=== PATIENT | female | born 1985 | race Caucasian/White ===

== ENCOUNTER 2019-09-22 10:26 | Day surgery (SDC) | payer OTHER ==
[2019-09-17 10:12] VITALS: BMI 25.7
[2019-09-18 13:38] LABS: Mean Corpuscular HGB CONC 33.6 g/dL (32.0-36.0); Mean Corpuscular Hemoglobin 30.2 pg (27.0-31.0); Mean Corpuscular Volume 89.8 fL (78.0-98.0); Mean Platelet Volume 8.8 fL (7.4-10.4); Platelet Count 221 thou/uL (130-400); RBC Distribution Width 12.4 % (11.5-14.5); Red Blood Cell (RBC) Count 4.65 mill/uL (4.20-5.40); White Blood Cell (WBC) Count 11.4 thou/uL (4.8-10.8)
[2019-09-19 12:16] LABS: SARS-CoV-2 MS2 Positive; SARS-CoV-2 N Gene Negative; SARS-CoV-2 S Gene Negative; SARS-CoV-2 orf1ab Negative
[2019-09-22] MEDS ORDERED: Fentanyl 100 MCG/2 ML VIAL ONE ×2 (11:34→13:36)
[2019-09-22] MEDS ORDERED: Ondansetron PF 4 MG/2 ML Vial ONE (11:39)
[2019-09-22] MEDS ORDERED: PROPOFOL 200 MG/20 ML VIAL ONE (11:39)
[2019-09-22] MEDS ORDERED: Lidocaine 1% PF 5 ML VIAL ONE (11:39)
[2019-09-22] MEDS ORDERED: Ketorolac Tromethamine 30 MG/ML VIAL ONE (11:39)
[2019-09-22] MEDS ORDERED: EPHEDRINE 25 MG/5 ML SYRINGE ONE (11:39)
[2019-09-22] MEDS ORDERED: Succinylcholine Chloride 20 MG/ML 10 ml SYRINGE FS ONE (11:39)
[2019-09-22] MEDS ORDERED: Acetaminophen 500 MG TAB ONE (11:42)
[2019-09-22] MEDS ORDERED: Promethazine HCl 25 MG/ML VIAL ONE (13:08)
[2019-09-22] MEDS ORDERED: HYDROcodone/Acetaminophen 5/325 mg Tablet ONE (14:07)
--- NOTE | 2019-09-22 19:20 | OP ---
DATE OF PROCEDURE: 09/22/2019 PREOPERATIVE DIAGNOSES: 1. Intrauterine at 13 weeks. 2. History of cervical insufficiency. POSTOPERATIVE DIAGNOSES: 1. Intrauterine at 13 weeks. 2. History of cervical insufficiency. PROCEDURE PERFORMED: [place] cervical cerclage. ANESTHESIA: General LMA. HEADING REPAIRER SURGEON: None. ESTIMATED BLOOD LOSS: 5 mL. PATHOLOGY: None. COMPLICATIONS: None. DRAINS: None. FINDINGS: A patulous cervix was present, closed at the internal cervical os, approximately 2 cm dilated at the external os. Prior scars from previous cerclage was placed. Mersilene tape was used with the knot present at 5 o'clock. The cervix following the procedure was closed long and high, starting with the Mersilene tape. DESCRIPTION OF PROCEDURE: The patient was taken to the operating room, where general anesthesia was obtained without difficulty. The patient was prepped and draped in a sterile fashion in a dorsal lithotomy position. A weighted speculum was placed in the vagina, and the cervix was visualized with a Anya retractors. Anterior and posterior lips of the cervix were grasped with ring forceps, and a Mersilene tape was used to perform circumferential stitch around the cervix starting posteriorly and 4 different throws through the cervical stroma. The knot was then tied down securely x4. The needles were cut and removed out of the patient. Irrigation was performed of the cervix and vagina. Hemostasis was noted to be excellent. All instruments were removed out of the vagina. The patient tolerated the procedure well. Sponge, lap, and needle counts were correct x2. The patient was taken to recovery room in stable condition. Job ID: [id number]
== END 2019-09-22 14:30 | disposition home or self-care (01) ==
LOC: SDC 10:26
PROVIDERS: ATTEND Student in an Organized Health Care Education/Training Program
PROC: 0UVC7ZZ Restriction of Cervix, Via Natural or Artificial Opening (ICD-10-PCS; principal; 2019-09-22)
DX: O34.31 Maternal care for cervical incompetence, first trimester (principal); O09.211 Supervision of pregnancy with history of pre-term labor, first trimester; O09.521 Supervision of elderly multigravida, first trimester; Z3A.13 13 weeks gestation of pregnancy; Z87.440 Personal history of urinary (tract) infections; Z87.891 Personal history of nicotine dependence; Z88.0 Allergy status to penicillin; Z91.048 Other nonmedicinal substance allergy status
CPT/HCPCS: 85027; 86850; 86900; 86901; 87635; J1885; J2001; J2405; J2550; J2704; J3010; U0003

== ENCOUNTER 2020-02-15 16:55 | Day surgery (SDC) | payer OTHER ==
[2020-02-15 17:26] VITALS: BP 114/69; TEMP 98.7
[2020-02-15 17:33] VITALS: BMI 27.4
[2020-02-15 18:40] LABS: Bilirubin Negative (Negative); Blood, Urine Negative (Negative); Clarity Clear (Clear); Glucose, Urine (Dipstick) Normal (Negative); Ketone, Urine Negative (Negative); Leukocyte 250 Leu/uL (Negative); Nitrite Negative (Negative); Protein, Urine (Dipstick) 10 mg/dL (Neg-Trace); RBC/HPF 0-3 HPF (0-3); Specific Gravity, Urine 1.021 (1.002-1.036); Squamous Epithelial 0-3 HPF (0-3); Urobilinogen Normal mg/dL (Less than 2); pH, Urine 6.5 (5.0-9.0)
[2020-02-15 18:49] LABS: Bacteria/HPF 1+ HPF (None Seen)
[2020-02-15] MEDS ORDERED: hydrALAZINE 20 MG/ML VIAL SLOW IVP PRN (19:28)
--- NOTE | 2020-02-15 20:56 | PRG ---
DATE OF SERVICE: 02/15/2020 PRIMARY OB: Dr. Beronica Roberts. CHIEF COMPLAINT: Cramping. HISTORY OF PRESENT ILLNESS: The patient is a 34-year-old G8, P5 female with an intrauterine at 34 weeks and 4 days, presenting to Labor and Delivery with complaints of pelvic pressure and cramping since about 3 o'clock. The patient reports this has been complicated by history of cervical incompetence and had a prophylactic cerclage placed and is on Jessica weekly. The patient also is on Macrobid for UTI suppression every night. The patient reports that she has had a change in her discharge and believes that she has urinary tract infection. She reports that her cramping has been present off and on for several weeks now, just got a little bit worse today. She denies fever, cough, headache, chest pain, shortness of breath, nausea, vomiting, diarrhea, constipation, hip problems, knee problems, muscle weakness. She denies vaginal bleeding, leakage of fluid, urinary urgency or frequency. PAST MEDICAL HISTORY: Cervical incompetence, acid reflux, and asthma. PAST SURGICAL HISTORY: Cervical cerclage, D and C, and blood transfusion. SOCIAL HISTORY: Denies drug, alcohol, or tobacco use. ALLERGIES: PENICILLIN. OB LABS: Unavailable at time of dictation. REVIEW OF SYSTEMS: Per HPI. PHYSICAL EXAMINATION: VITAL SIGNS: Blood pressure 114/69, heart rate of 78, respiratory rate of 18, saturating 97% on room air, temperature 98.7. GENERAL: She appears to be in no acute distress. She is alert, oriented, cooperative, and pleasant to interact with. HEENT: Head is normocephalic and atraumatic. LUNGS: Clear to auscultation bilaterally. HEART: Has a regular rate and rhythm. ABDOMEN: Gravid, soft, nontender. EXTREMITIES: Nontender and nonedematous. GENITOURINARY: Vulva is without masses, lesions, or erythema. Vagina is moist. She does have a white curd-like discharge and a thin milky discharge. Cervix appears closed. There is no bloody discharge. On digital exam, cerclage is intact and cervix is closed. DIAGNOSTIC DATA: heart tracing shows the fetus with a baseline in the 130s with moderate long-term variability, positive 15 x 15 accelerations. Tocometer showing contractions about every 3 to 4 minutes, but not felt consistently. UA shows 250 leukocyte esterase, 4 to 6 white blood cells, and 1+ bacteria, 0 to 3 squamous cells. VP3 shows negative yeast, negative Trichomonas, positive Gardnerella. ASSESSMENT AND PLAN: The patient is a 34-year-old female with an intrauterine at 34 weeks and 4 days, complicated by history of delivery and incompetent cervix, status post cerclage placement and on [place]. She also has a history of recurrent UTIs, is on suppression. Her UA today shows positive bacteria. I have cultured the urine to see if we have any resistance to her suppressive medications. In the meantime, she has been asked to take Macrobid 2 to 3 times a day for treatment and then to follow up. She has a followup appointment with Dr. Roberts on Saturday to see if cultures are showing any resistance to her current treatment. She also has bacterial vaginosis, for which she will be prescribed metronidazole. These 2 things could very well be causing the cramping she is experiencing. However, patient has no evidence of labor at this time. The cerclage is intact and there is no pressure against the cervix. Fetus has a category 1 tracing and reactive NST. The patient is being discharged home on Macrobid, again 100 mg to be taken 2 to 3 times a day for a week and metronidazole 500 mg twice a day to be taken for a week. She is also going to be taking zaly-grl-cxprmic anti-yeast medication vaginally. 02/17/20 urine cx results still pending. Job ID: [id number]
== END 2020-02-15 19:30 | disposition home health service (06) ==
LOC: L&D/OP 16:55
PROVIDERS: ATTEND Student in an Organized Health Care Education/Training Program
DX: O99.891 Other specified diseases and conditions complicating pregnancy (principal); R10.2 Pelvic and perineal pain; O23.43 Unspecified infection of urinary tract in pregnancy, third trimester; O23.593 Infection of other part of genital tract in pregnancy, third trimester; B96.89 Other specified bacterial agents as the cause of diseases classified elsewhere; O34.33 Maternal care for cervical incompetence, third trimester; O99.613 Diseases of the digestive system complicating pregnancy, third trimester; K21.9 Gastro-esophageal reflux disease without esophagitis; O99.513 Diseases of the respiratory system complicating pregnancy, third trimester; J45.909 Unspecified asthma, uncomplicated; O09.213 Supervision of pregnancy with history of pre-term labor, third trimester; O09.523 Supervision of elderly multigravida, third trimester; Z3A.34 34 weeks gestation of pregnancy; Z79.899 Other long term (current) drug therapy; Z88.0 Allergy status to penicillin; Z91.048 Other nonmedicinal substance allergy status
CPT/HCPCS: 81001; 87086; 87480; 87510; 87660; 99285

== ENCOUNTER 2020-03-09 09:51 | Inpatient (IN) | payer OTHER ==
[2020-03-09 10:30] VITALS: BMI 27.3
[2020-03-09] MEDS ORDERED: Acetaminophen 500 MG TAB PO PRN (11:52)
[2020-03-09] MEDS ORDERED: Methylergonovine 0.2 MG/ML VIAL IM PRN (11:52)
[2020-03-09] MEDS ORDERED: hydrALAZINE 20 MG/ML VIAL SLOW IVP PRN (11:52)
[2020-03-09] MEDS ORDERED: Carboprost 250 MCG/ML AMP IM PRN (11:52)
[2020-03-09] MEDS ORDERED: Ibuprofen 800 MG TAB PO PRN (11:52)
[2020-03-09] MEDS ORDERED: HYDROcodone/Acetaminophen 5/325 mg Tablet PO PRN (11:52)
[2020-03-09] MEDS ORDERED: Promethazine HCl 25 MG/ML VIAL IM PRN ×2 (11:52→23:22)
[2020-03-09] MEDS ORDERED: Ondansetron PF 4 MG/2 ML Vial IVP PRN ×2 (11:52→23:22)
[2020-03-09] MEDS ORDERED: Butorphanol Tartrate 1 MG/ML VIAL SLOW IVP PRN (11:52)
[2020-03-09] MEDS ORDERED: Misoprostol 200 MCG TAB PR PRN (11:52)
[2020-03-09] MEDS ORDERED: Lidocaine 1% (PF) 30 ML VIAL SC PRN (11:52)
[2020-03-09] MEDS ORDERED: NS w/ Oxytocin 10 units 500 ML IV SCH (12:00)
[2020-03-09] MEDS ORDERED: Butorphanol Tartrate 1 MG/ML VIAL ONE (12:02)
[2020-03-09 12:37] LABS: Amphetamine Not Detected (NotDetected); Barbiturates Screen Not Detected (NotDetected); Benzodiazepine Screen Not Detected (NotDetected); Cocaine Metabolite Screen Not Detected (NotDetected); Medtox Control Line Valid? VALID (VALID); Medtox Reader # READER 1; Methadone Not Detected (NotDetected); Methamphetamine Not Detected (NotDetected); Opiate Screen Not Detected (NotDetected); Oxycodone Screen Not Detected (NotDetected); Phencyclidine (PCP) Not Detected (NotDetected); THC/Cannabinoid Screen Not Detected (NotDetected); Tricyclic Screen Not Detected (NotDetected)
[2020-03-09 12:45] LABS: Hemoglobin 13.3 g/dL (12.0-16.0); Mean Corpuscular HGB CONC 33.8 g/dL (32.0-36.0); Mean Corpuscular Hemoglobin 30.6 pg (27.0-31.0); Mean Corpuscular Volume 90.5 fL (78.0-98.0); Mean Platelet Volume 8.6 fL (7.4-10.4); Platelet Count 248 thou/uL (130-400); RBC Distribution Width 13.1 % (11.5-14.5); Red Blood Cell (RBC) Count 4.35 mill/uL (4.20-5.40); White Blood Cell (WBC) Count 12.5 thou/uL (4.8-10.8)
[2020-03-09 13:18] LABS: Syphilis Antibody Nonreactive (Nonreactive); Syphilis Antibody Index 0.04 S/CO (<1.00 Non-Reactive)
[2020-03-09 13:19] LABS: HBSAg Index 0.14 S/CO (0-0.99); Hep B Surf Ag Non-Reactive S/CO (NonReactive)
[2020-03-09] MEDS ORDERED: DISCONTINUE ALL PREVIOUS NARCOTICS FS SCH (14:15)
[2020-03-09] MEDS ORDERED: Bupivacaine 0.5% 20 ML, fentaNYL Citrate/PF 400 MCG in Sodium Chloride 0.9% 72 ML EPIDURAL SCH (14:15)
--- NOTE | 2020-03-09 15:25 | PDOC.LDHP ---
Labor and Delivery H&P Chief complaint: other (CERCLAGE REMOVAL) HPI: [id number] [id number] AT [id number] BY LMP HERE FOR CERCLAGE REMOVAL. WAS CHECKED IN OFFICE TODAY AND IT WAS NOTED THE STITCH WAS PULLING THROUGH CERVIX. SOME PAINFUL CTX Q 4MIN, NO LOF VB. GOOD FM. Current gestational age (weeks): 37 Due date: 03/24/20 Dating criteria: last menstrual period Grav: 9 Para: 5 OB History Details: INCOMPETENT CERVIX Current complications: other (CERCLAGE) Abnormal US findings: No Past Medical History: DENIES Current medications: pre-wilmer vitamins, iron, other (PEPCID, FLEXERIL, TYLENOL) Previous surgical history: other (CERCLAGE X 5) Allergies/Adverse Reactions: Allergies Allergy/AdvReac Type Severity Reaction Status Date / Time adhesive Allergy Rash Verified 02/15/20 17:32 Penicillins Allergy Anaphylaxis Verified 09/17/19 10:12 Social history: tobacco use, drug use - Physical Exam Vital signs reviewed and normal: yes General: NAD Heart: RRR Lungs: CTAB Abdomen: gravid Extremeties: no edema FHT: category 1 [place] contractions every: 2-4MIN - Vaginal Exam cm dilated: 4 Effacement: 75% Station: -2 (CERCLAGE RIPPED THROUGH ON RIGHT SIDE WITH 2CM DEFECT IN CERVIX, MERSELINE TAPE CUT AND REMOVED ENTIRELY AT BEDSIDE WITHOUT DIFFICULTY) - OB Labs Blood type: A RH: positive Antibody Screen: negative HIV: negative RPR: negative HEPSAg: negative 1 hour GCT: negative GBS: negative Urine drug screen: positive Rubella: immune - Assessment L&D Assessment: medically indicated induction - Plan Plan: admit to L&D, labor augmentation if indicated, informed consent obtained, anesthesia consult for pain management
[2020-03-09] MEDS: Lactated Ringer's 1,000 ML IV SCH ×2 (16:05→23:47)
[2020-03-09 18:20] LABS: SARS-CoV-2 MS2 Positive; SARS-CoV-2 N Gene Negative; SARS-CoV-2 S Gene Negative; SARS-CoV-2 by NAA Not Detected (NotDetected); SARS-CoV-2 orf1ab Negative
[2020-03-09] MEDS ORDERED: Fentanyl 4 mcg/Bup 0.1% Cadd 100 ML in Premix Bag 1 BAG EPIDURAL SCH (23:15)
[2020-03-09] MEDS ORDERED: ePHEDrine 50 MG/ML VIAL SLOW IVP PRN (23:22)
[2020-03-09] MEDS ORDERED: Lactated Ringer's 500 ML IV PRN (23:22)
[2020-03-09] MEDS ORDERED: Acetaminophen 325 MG TAB PO PRN (23:22)
[2020-03-09] MEDS ORDERED: Naloxone HCl 0.4 mg/ml Vial IVP PRN ×2 (23:22)
[2020-03-09] MEDS ORDERED: Communication Order-Pharmacy FS SCH (23:30)
[2020-03-09] MEDS ORDERED: Fentanyl 4 mcg/Bupivacaine 0.1% Cassette 100 ML EPIDURAL SCH (23:30)
[2020-03-09] MEDS: diphenhydrAMINE 50 MG/ML VIAL IVP PRN (23:33)
[2020-03-10] MEDS: diphenhydrAMINE 50 MG/ML VIAL IVP PRN (05:43)
[2020-03-10] MEDS ORDERED: Tranexamic Acid 1,000 MG/10 ML VIAL ONE (13:22)
[2020-03-10] MEDS: NS / Oxytocin 40 units/1000ml 1,000 ML IV PRN ×2 (15:32→15:33)
--- NOTE | 2020-03-10 16:19 | PDOC.OPDEL ---
OB Operative/Delivery Note Delivery Dr/Surgeon: Armando Assist: n/a Pre-Delivery Diagnosis: medically indicated induction Procedure/Post Delivery Dx: spontaneous vaginal delivery Weeks gestation: 38 Anesthesia: epidural - Findings A Sex: male - 1 min: 8 - 5 min: 9 - Additional Findings/Plan Placenta delivered: spontaneous Repaired Obstetrical Laceration: none Estimated blood loss: 100cc Post delivery plan: routine recovery
[2020-03-10] MEDS ORDERED: hydrALAZINE 20 MG/ML VIAL SLOW IVP PRN (16:33)
[2020-03-10] MEDS ORDERED: Preparation H Ointment 28 GM TUBE PR PRN (16:33)
[2020-03-10] MEDS ORDERED: Benzocaine-Menthol 82.5 ML CAN TOP PRN (16:33)
[2020-03-10] MEDS ORDERED: Bisacodyl 10 MG SUPP PR PRN (16:33)
[2020-03-10] MEDS ORDERED: NS / Oxytocin 40 units/1000ml 1,000 ML IV SCH (16:33)
[2020-03-10] MEDS ORDERED: Ondansetron PF 4 MG/2 ML Vial IVP PRN (16:33)
[2020-03-10] MEDS ORDERED: Milk Of Magnesia 30 ML UDCUP PO PRN (16:33)
[2020-03-10] MEDS ORDERED: diphenhydrAMINE 25 MG CAP PO PRN (16:33)
[2020-03-10] MEDS ORDERED: Lanolin Ointment 7 GM TUBE TOP PRN (16:33)
[2020-03-10] MEDS: Lactated Ringer's 1,000 ML IV SCH (16:45)
[2020-03-10] MEDS: HYDROcodone/Acetaminophen 5/325 mg Tablet PO PRN ×3 (17:12→22:41)
[2020-03-10] MEDS: Ferrous Sulfate 325 MG TAB PO SCH (17:15)
[2020-03-10] MEDS ORDERED: Adacel (T-DAP) 0.5 ML SYRINGE IM ONE (18:00)
[2020-03-10] MEDS: Docusate Calcium (SURFAK) 240 MG CAP PO SCH (20:45)
[2020-03-10] MEDS: Ibuprofen 800 MG TAB PO SCH (20:46)
[2020-03-11] MEDS: HYDROcodone/Acetaminophen 5/325 mg Tablet PO PRN ×3 (03:07→13:54)
[2020-03-11] MEDS: Ibuprofen 800 MG TAB PO SCH ×2 (04:56→13:53)
--- NOTE | 2020-03-11 08:00 | PDOC.PP ---
Post Progress Note Post Day #: 1 PO intake tolerated: yes Flatus: yes Ambulation: yes Vital Signs (12 hours) Temp Pulse Resp BP Pulse Ox 03/11/20 03:10 98.1 F 76 16 136/74 03/10/20 20:27 98.0 F 90 12 119/72 98 Weight Weight 154 lb - Physical Examination Abdominal: no distention, appropriately TTP Extremities: negative homans (B) Result Diagrams: 03/09/20 12:24 Additional Labs: Post Labs Hep Bs Antigen Non-Reactive S/CO (NonReactive) 03/09/20 12:24 Blood Type A POSITIVE 03/09/20 12:24 - Assessment/Plan Post day 1 from . Doing well. d/c if baby released. F/u [address] Roberts.
[2020-03-11 08:11] VITALS: TEMP 98
[2020-03-11] MEDS: Docusate Calcium (SURFAK) 240 MG CAP PO SCH (08:17)
[2020-03-11] MEDS: Ferrous Sulfate 325 MG TAB PO SCH ×2 (08:19→16:38)
[2020-03-11] MEDS ORDERED: Prenatal Vitamin 1 TAB PO SCH (09:00)
[2020-03-11 11:45] VITALS: BP 135/70
== END 2020-03-11 18:19 | disposition home or self-care (01) | DRG 768 ==
LOC: L&D/OP 09:51 → L&D 11:52 → 3SW 03-10 17:12
PROVIDERS: ADMIT Student in an Organized Health Care Education/Training Program; ATTEND Student in an Organized Health Care Education/Training Program
PROC: 0UCC7ZZ Extirpation of Matter from Cervix, Via Natural or Artificial Opening (ICD-10-PCS; 2020-03-09)
PROC: 10E0XZZ Delivery of Products of Conception, External Approach (ICD-10-PCS; principal; 2020-03-10)
PROC: 10907ZC Drainage of Amniotic Fluid, Therapeutic from Products of Conception, Via Natural or Artificial Opening (ICD-10-PCS; 2020-03-10)
PROC: 3E0P7VZ Introduction of Hormone into Female Reproductive, Via Natural or Artificial Opening (ICD-10-PCS; 2020-03-10)
PROC: 3E033VJ Introduction of Other Hormone into Peripheral Vein, Percutaneous Approach (ICD-10-PCS; 2020-03-10)
DX: O34.33 Maternal care for cervical incompetence, third trimester (principal); Z37.0 Single live birth; Z20.828 Contact with and (suspected) exposure to other viral communicable diseases; Z3A.37 37 weeks gestation of pregnancy; Z88.0 Allergy status to penicillin
CPT/HCPCS: 36415; 80306; 85027; 86780; 86850; 86900; 86901; 87340; 87635; J0595; J1200; J2550; J2590; J3010; J3490; Q0163; U0003